=== PATIENT | female | born 1945 | race Caucasian/White ===

== ENCOUNTER 2025-01-08 12:18 | Outpatient (RCR) | payer MEDICARE, SELFPAY ==
--- NOTE | 2025-01-19 07:38 | HP.OTEVAL ---
Patient's Visit Information Visit Information Visit Information: JOS DELACRUZ is a 79 year old F, referred to Occupational Therapy by BETH GILLIS MD, with a diagnosis of OA bilateral hands. Date of Evaluation: 01/08/25 Occupational Therapist: Matilde Lind, OTR/Luz, CHT Subjective Subjective: This 79-year-old female was seen for OT eval with dx of OA of left MF. Pt states she will have sx and needs a splint made- orders indicate splint in full extension 48 hrs following sx. Therapist explained to pt she will have to have splint adj to accommodate for change in finger size. pt demo understanding. ROM ROM Comments: Left MF PIP+15/ 80 Goals Goal:: Pt will demo ind. Donning/doffing of custom orthosis by end of 1st session. Pt will demonstrate understanding of orthosis use and precautions by end of 1st session and demonstrate knowledge of returning to clinic if orthosis needs adj. to increase comfort by end of 1st session. Rehabilitation General Assessment: pt demo OA deformity of left MF PIP- pt having sx and in need of custom orthosis with finger in full ext. Rehabilitation Potential: Good Anticipated Interventions Anticipated Interventions: A/AAROM/PROM, Edema Control, Scar Care, Triggerpoint Release, Modalities, Orthoses, Joint Protection/Energy Conservation, Ergonomic Education, Education re assistive Equipment, Education re Diagnosis and Home Program Visit Plan Frequency: 1-2x /Week Duration: 2 Months TEXT: Thank you for the opportunity to evaluate your patient. For Medicare and Medicare HMO plans, please review the plan of care and approve it. It will need to be FAXED BACK to us at [phone] for Medicare purposes. Please let me know if there are questions or concerns regarding this plan of care. Physician Signature: Date:
--- NOTE | 2025-05-24 18:59 | HP.OT.NRP ---
Patient Information Patient Information: JOS DELACRUZ was seen in my office for initial evaluation on 01/08/25. The following Plan of Care was established for this patient: POC Established Initial Frequency: 1-2x /Week Initial Duration: 2 Months Anticipated Interventions Anticipated Interventions: A/AAROM/PROM, Edema Control, Scar Care, Triggerpoint Release, Modalities, Orthoses, Joint Protection/Energy Conservation, Ergonomic Education, Education re assistive Equipment, Education re Diagnosis and Home Program Last Seen Last Seen: This patient was last seen in our office 01/08/25. Pertinent comments regarding their Occupational therapy will appear below: pt was seen for OT eval only. Due to time lapse in services pt is d.c at this time. At this point I will be discontinuing this patient from occupational therapy. I would be happy to see this patient again in the future if found appropriate by the physician. Thank you! Matilde Lind, OTR/L, CHT
== END 2025-01-08 19:00 | disposition home or self-care (01) ==
LOC: OT 12:18
PROVIDERS: Visit Provider Orthopaedic Surgery
DX: M15.2 Bouchard's nodes (with arthropathy) (principal)
CPT/HCPCS: 97166

== ENCOUNTER 2025-08-19 11:30 | Outpatient (RCR) | payer MEDICARE, SELFPAY ==
--- NOTE | 2025-07-29 14:28 | HP.OTEVAL ---
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 Date of Evaluation: 07/29/25 Occupational Therapist: Matilde Lind, SAMEERR/Luz, CHT Subjective Subjective: This 80 year old female was seen for OT eval with dx of left MF PIP arthroplasty. pt underwent therapy in [place] initially but due to the [address] she has tsf her care to [facility]. Pt underwent a left PIPJ arthroplasty 01/29/2025. pt since has gained functional fisting but PIPJ of left MF extension is a concern. Pt is here for custom orthosis for PIP extension to decrease the extensor lag. pt is happy with her progress but does have concerns with limited ability to straighten her left MF PIPJ. ROM PIP: left -30/80 ROM Comments: pt arrives for custom orthosis to decrease extensor lag from her PIP joint replacement. Sensation Sensation Comments: slight sensation difference on radial side of MF from incision Quick DASH-Disab of Arm,Shoulder& Hand Quick DASH Score: [phone] Goals Goal:Daily scar massage when approriate: Yes Goal:ROM equal to unaffected hand: Yes Goal:Full use of affected hand in daily activities including work: Yes Comment: orthosis use Other Goal: pt will demo understanding of using orthosis to decrease extensor lag by end of 1st session. Rehabilitation General Assessment: pt arrives s/p from Left MF PIPJ arthroplasty on 01/29/25. pt demo with limited PIP ext and in need of custom orthosis for pt to wear. pt also demo hyper ext at MCP when she straightens her fingers. ( during this session pt did admit she would try to flatten her hand a lot ( causing MPJ of MF to hyper ext and PIPJ to flex vs straighten out ) pt also realized when she was attempting to straighten her left MF PIPJ she would also hyper extend at her MPJ which in turn does cause a increase in her PIP flex vs straightening her PIPJ) pt demo need for skilled OT services 1-2x week for 12 weeks. Therapist will work 6 weeks to decrease extensor lag. (boutonniere deformity). Will transition pt out of orthosis and monitor for extensor lag. Pt demo understanding and agree to POC. Rehabilitation Potential: Good Anticipated Interventions Anticipated Interventions: Strengthening, Orthoses, Joint Protection/Energy Conservation, Ergonomic Education, Fine Motor Coord/Aniceto, Caregiver Training and Home Program Visit Plan Frequency: 1-2x /Week Duration: 3 Months General Plan: PIPJ extension splint allowing DIP flexion ed. pt on MCP hyper ext mechanics and how this will cause PIPJ to flex vs straighten her PIPJ night orthosis that allows for PIP full ext. TEXT: Thank you for the opportunity to evaluate your patient. For Medicare and Medicare HMO plans, please review the plan of care and approve it. It will need to be FAXED BACK to us at [phone] for Medicare purposes. Please let me know if there are questions or concerns regarding this plan of care. Physician Signature: Date:
== END 2025-08-19 19:00 | disposition home or self-care (01) ==
LOC: OT 11:30
PROVIDERS: Referring Provider Orthopaedic Surgery; Visit Provider Orthopaedic Surgery
DX: M15.2 Bouchard's nodes (with arthropathy) (principal); Z96.692 Finger-joint replacement of left hand
CPT/HCPCS: 97166; 97530